=== PATIENT | female | born 2000 | race Hispanic/Latino ===

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

== ENCOUNTER 2020-11-18 17:54 | Emergency (ER) | payer MEDICAID, OTHER ==
[~2020-11-18] VITALS: Ht 167.6 cm; Wt 73.5 kg
[2020-11-18] MEDS ORDERED: ONDANSETRON 4MG INJ ONE (18:01)
[2020-11-18] MEDS ORDERED: MORPHINE 4 MG SYG ONE ×2 (18:01→18:37)
[2020-11-18 18:19] LABS: BASOPHILS % (AUTO) 0.2 % (0.0-5.0); EOSINOPHILS % (AUTO) 0.5 % (0.0-8.0); HEMATOCRIT 34.8 % (36-48); LYMPHOCYTES % (AUTO) 20.7 % (21.0-51.0); MEAN CORPUSCULAR HGB CONC 34.5 g/dL (32.0-36.0); NEUTROPHILS % (AUTO) 71.3 % (40.0-77.0); PLATELET COUNT (AUTO) 259 K/uL (130-400); RED CELL DISTRIBUTION WIDTH 12.2 % (11.0-15.5); WHITE BLOOD COUNT (AUTO) 12.4 K/uL (4.8-10.8)
[2020-11-18] MEDS ORDERED: LACTATED RINGERS 1000ML 1,000 ML IV STA (18:53)
[2020-11-18] MEDS ORDERED: 0.9%NACL 1000ML 1,000 ML IV SCH (19:30)
[2020-11-18] MEDS ORDERED: HYDROMORPHONE 0.5 MG SYG (0.5MG/0.5ML) IVP ONE (19:30)
[2020-11-18 21:07] VITALS: BP 136/73
== END 2020-11-18 22:22 | disposition home or self-care (01) ==
LOC: EDH 17:54
DX: O03.9 Complete or unspecified spontaneous abortion without complication (principal); Z3A.11 11 weeks gestation of pregnancy; Z79.899 Other long term (current) drug therapy
CPT/HCPCS: 36415; 76817; 84702; 84703; 85025; 86850; 86900; 86901; 96361 ×2; 96374; 96375; 96376; 99284; J1170; J2270 ×2; J2405; J7030